=== PATIENT | female | born 1940 | race Caucasian/White ===

== ENCOUNTER 2021-01-13 11:13 | Emergency (ER) | payer MEDICARE, BC, SELFPAY ==
--- NOTE | ~2021-01-13 | XR_ITS ---
EXAMINATION: XR shoulder RT min 2V EXAM DATE: 01/13/2021 11:43 INDICATION: Fall last night, right shoulder pain, replacement. TECHNIQUE: The following right shoulder projections obtained: frontal projection with internal rotati on, frontal projection with external rotation, Grashey, and scapular Y view (4+ views). FINDINGS: There is right shoulder replacement hardware in expected position. There is fragmented appe arance to the acromion, advanced acromioclavicular joint arthritis, but everything appears well-corti cated and therefore likely chronic. There our acute right 8th and 9th rib fractures laterally, finding indicated. These are essentially n ondisplaced. There is aortic arteriosclerosis. IMPRESSION: 1. Acute right 8th and 9th rib fractures. 2. Right shoulder arthroplasty, intact. Reviewed, dictated and finalized at location B.
[2021-01-13 11:23] VITALS: BP 158/59; PULSE 84; RESP 12; TEMP 36.8; O2SAT 99
--- NOTE | 2021-01-13 11:54 | ED.UPPEXIN ---
HPI - Extremity Injury (Upper) General Chief Complaint: Extremity Injury, Upper Stated Complaint: rt shoulder injury Time Seen by Provider: 01/13/21 11:48 Source: patient and RN notes reviewed Mode of arrival: ambulatory Limitations: no limitations History of Present Illness HPI narrative: Patient presents today complaining of right shoulder pain s/p fall yesterday. Reports pain in her shoulders a 10/10 with movement. States she cannot make her shoulder move on its own. Denies numbness or tingling in the arm or hand. She had a shoulder replacement in 2012. She took 25 mg of tramadol and Tylenol with relief of symptoms. No pain at rest. She has been wearing a sling. MD complaint: injury to: right and shoulder Related Data Home Medications Medication Instructions Recorded Confirmed albuterol sulfate [ProAir HFA] INHALATION 01/13/21 escitalopram oxalate mg 01/13/21 esomeprazole magnesium [Nexium] mg 01/13/21 fluticasone propion-salmeterol INHALATION 01/13/21 [Advair Diskus] fluticasone propionate [Flovent INHALATION 01/13/21 HFA] furosemide 01/13/21 hydroxyzine pamoate 01/13/21 prednisone 01/13/21 tramadol mg 01/13/21 Allergies Allergy/AdvReac Type Severity Reaction Status Date / Time levofloxacin [From Levaquin] Allergy Rash Verified 01/13/21 11:24 amoxicillin AdvReac Nausea Verified 01/13/21 11:24 Review of Systems Review of Systems: CONSTITUTIONAL: Denies body aches, fever, chills, or sweats. EYES: Denies visual changes, redness, or discharge. ENT: Denies rhinorrhea, congestion, sore throat, or otalgia. CARDIOVASCULAR: Denies chest pain, palpitations, or edema. RESPIRATORY: Denies cough or dyspnea. GASTROINTESTINAL: Denies abdominal pain, nausea, vomiting, or diarrhea. GENITOURINARY: Denies dysuria or hematuria. SKIN: Denies rash, itching, or wounds. MUSCULOSKELETAL: Denies back pain, or myalgia. + Right shoulder injury NEUROLOGIC: Denies headache, numbness, tingling, or weakness. PSYCH: Denies depression or anxiety. [facility] Past Medical History Medical History (Updated 01/13/21 @ 12:14 by Erika Jones, TERRITORY SALES PROFESSIONAL, ) Chronic back pain GERD (gastroesophageal reflux disease) Surgical History Surgical History (Updated 01/13/21 @ 11:56 by Erika Jones, TERRITORY SALES PROFESSIONAL, ) History of right shoulder replacement Comments At time of signature, I have reviewed and agree with nursing past medical, surgical, social and family history unless otherwise noted. Please see nursing chart for further information. There is no relevant family history pertinent to the presenting complaint Exam Narrative: GENERAL: Well-appearing, well-nourished, and in no acute distress. HEAD: Normocephalic, atraumatic. EYES: EOMI. No redness or drainage. Conjunctivae normal. ENT: Mucous membranes pink and moist. NECK: Normal AROM. CHEST: No respiratory distress. [After xray results, palpation of patient's chest shows some very mild tenderness of the right anterolateral ribs. No crepitus or deformity noted.] EXTREMITIES: Right shoulder: Nontender about the shoulder. Patient has no pain with passive range of motion. She does have severe pain when she tries to actively move her shoulder, but is unsuccessful with movement. No pain with movement of the elbow or wrist. Distal sensation intact. Capillary refill normal. Radial pulse normal. Hand community service coordinator equal and strong. No edema, deformity noted to the shoulder. No clavicle tenderness. No scapular tenderness. SKIN: Warm, dry, no rash. Capillary refill normal. Normal skin turgor. NEURO: No focal deficits. Alert and oriented x3. Gait steady. PSYCH: Normal affect. No signs of depression or anxiety. Course Vital Signs Vital signs: Vital Signs Temperature 98.2 F 01/13/21 11:23 Pulse Rate 84 01/13/21 11:23 Respiratory Rate 12 01/13/21 11:23 Blood Pressure 158/59 H 01/13/21 11:23 Pulse Oximetry 99 01/13/21 11:23 Temperature 98.2 F 01/13/21 11
== END 2021-01-13 12:26 | disposition home or self-care (01) ==
PROVIDERS: Emergency Provider Nurse Practitioner
DX: S49.91XA Unspecified injury of right shoulder and upper arm, initial encounter (principal); S22.41XA Multiple fractures of ribs, right side, initial encounter for closed fracture; W19.XXXA Unspecified fall, initial encounter; K21.9 Gastro-esophageal reflux disease without esophagitis; Z96.611 Presence of right artificial shoulder joint
CPT/HCPCS: 73030; 99213; G0463